=== PATIENT | male | born 1995 | race Caucasian/White ===

== ENCOUNTER 2024-07-13 12:18 | Outpatient (CLI) | payer OTHER ==
[~2024-07-13 12:18] MED LIST: MACROBID 100 M100 MG PO; TAMS0.4C PO; URETRON D-S TAB1 TAB PO
[2024-07-13 12:41] LABS: URINE APPEARANCE Clear; URINE BILIRRUBIN Negative (NEGATIVE); URINE BLOOD Negative; URINE COLOR Yellow; URINE GLUCOSE Negative (NEGATIVE); URINE KETONE Negative (NEGATIVE); URINE LEUKOCYTE Negative; URINE NITRATE Negative; URINE PROTEIN Negative (NEGATIVE); URINE UROBILINOGEN 0.2 E.U./dl
[2024-07-13 12:43] LABS: URINE BACTERIA 1.2 uL (0.0-1933); URINE EPITHELIAL CELLS 0.3 uL (0.0-38.8); URINE RBC 1.5 uL (0.0-20.8); URINE WBC 0.3 uL (0.0-23.2)
== END 2024-07-13 23:00 | disposition home or self-care (01) ==
LOC: LAB 12:18
PROVIDERS: ATTEND Emergency Medicine Pediatric Emergency Medicine
DX: N39.0 Urinary tract infection, site not specified (principal); R35.0 Frequency of micturition